=== PATIENT | female | born 1945 | race Caucasian/White ===

== ENCOUNTER 2018-01-20 11:40 | Emergency (ER) | payer MEDICARE, OTHER ==
[~2018-01-20 11:40] MED LIST: ISOVUE-370 76%-LOCM 1 ML ONE
[2018-01-20 13:12] LABS: #Basophils 0.1 thou/uL (0.0-0.2); #Eosinphils 0.1 thou/uL (0.0-0.7); #Lymphocytes 2.6 thou/uL (1.20-3.40); #Monocytes 0.6 thou/uL (0.11-0.59); #Neutrophils 6.7 thou/uL (1.40-6.50); %Basophils 1.1 % (0.0-1.0); %Lymphocytes 25.6 % (21.0-51.0); %Monocytes 5.6 % (0.0-10.0); %Neutrophils 66.6 % (42.0-75.0); Mean Corpuscular HGB CONC 33.2 g/dL (32.0-36.0); Mean Corpuscular Hemoglobin 31.2 pg (27.0-31.0); Mean Corpuscular Volume 93.9 fL (78.0-98.0); Mean Platelet Volume 7.1 fL (7.4-10.4); Platelet Count 276 thou/uL (130-400); RBC Distribution Width 12.1 % (11.5-14.5); Red Blood Cell (RBC) Count 4.49 mill/uL (4.20-5.40); White Blood Cell (WBC) Count 10.1 thou/uL (4.8-10.8)
--- NOTE | 2018-01-20 13:20 | RAD ---
CHEST 1 VIEW: Date: 01/20/18 HISTORY: Epigastric abdominal pain, radiating to right upper quadrant. COMPARISON: None. FINDINGS: Normal cardiac silhouette. Pulmonary vessels and hilum are normal. No masses or consolidation. No pne umothorax or osseous abnormalities. Surgical clips project over the right upper quadrant. IMPRESSION: No acute cardiopulmonary process. POS: [facility]
[2018-01-20 13:27] LABS: ALT (SGPT) 12 U/L (8-55); AST (SGOT) 14 U/L (5-34); Albumin 4.2 g/dL (3.4-4.8); Alkaline Phosphatase 154 U/L (40-150); Anion Gap 11 mmol/L (10-20); BUN (Urea Nitrogen) 22 mg/dL (9.8-20.1); Bilirubin, Total 0.3 mg/dL (0.2-1.2); Calc. Creatinine Clearance 0 mL/min (70-130); Calcium 9.9 mg/dL (7.8-10.44); Carbon Dioxide 28 mmol/L (23-31); Chloride 105 mmol/L (98-107); Estimated GFR-MDRD 60; Glucose 105 mg/dL (80-115); Lipase 14 U/L (8-78); Potassium 4.3 mmol/L (3.5-5.1); Protein, Total 7.2 g/dL (6.0-8.3); Sodium 140 mmol/L (136-145)
[2018-01-20 13:31] LABS: CKMB 1.5 ng/mL (0-6.6); Troponin I Less than 0.010 ng/mL (< 0.028)
--- NOTE | 2018-01-20 14:19 | CT ---
CT ANGIOGRAM CHEST WITH CONTRAST CT ANGIOGRAM ABDOMEN WITH CONTRAST WITH AORTIC DISSECTION PROTOCOL: HISTORY: Epigastric substernal pain. Right upper quadrant pain. COMPARISON: Chest radiograph 01/20/18. FINDINGS: CT angiogram of the chest and abdomen is performed after the intravenous administration of contrast. Three-D rendering is provided. There are some mildly prominent right paratracheal lymph nodes, although measuring less than a centim eter in size. Heart size is not significantly enlarged. No pericardial effusion. NO pneumothorax. No effusion. No focal airspace consolidation. There is radiopacity within the right S2 neural foramen. Moderate facet arthropathy lower lumbar spi ne. No evidence of acute osseous abnormality. Severe degenerative disk space disease of L4. No aortic dissection. The celiac artery and superior mesenteric artery are both patent. No aneurysmal dilatation of the aorta. Inferior mesenteric artery is patent. The iliac vessels are without aneurysmal dilatation. Moderate diverticular disease sigmoid colon without acute current inf lammation. The spleen, liver, gallbladder, and pancreas are unremarkable as well as the adrenal glands. IMPRESSION: No evidence for aortic dissection. POS: [facility]
[2018-01-20] MEDS ORDERED: Lidocaine Viscous Sol 2% 15 ml UD Cup ONE (15:05)
[2018-01-20] MEDS ORDERED: Mag-Al 1200 mg/1200 mg/30 ML UDCUP ONE (15:05)
== END 2018-01-20 15:38 | disposition home or self-care (01) ==
LOC: ERS 11:40
DX: K21.9 Gastro-esophageal reflux disease without esophagitis (principal); Z86.73 Personal history of transient ischemic attack (TIA), and cerebral infarction without residual deficits; I10 Essential (primary) hypertension
CPT/HCPCS: 71045; 71275; 80053; 82553; 83690; 83880; 84484; 85025; 93005; 94760

== ENCOUNTER 2018-05-30 08:51 | Outpatient (CLI) | payer MEDICARE, OTHER ==
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
== END 2018-05-30 08:52 | disposition home or self-care (01) ==
LOC: SCSMRI 08:51
PROVIDERS: ATTEND Psychiatry & Neurology Neurology
DX: S06.890A Other specified intracranial injury without loss of consciousness, initial encounter (principal); G31.9 Degenerative disease of nervous system, unspecified; G93.9 Disorder of brain, unspecified
CPT/HCPCS: 70553; 82565

== ENCOUNTER 2018-06-28 12:49 | Outpatient (CLI) | payer MEDICARE, OTHER ==
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
== END 2018-06-28 12:50 | disposition home or self-care (01) ==
LOC: TBSIIMAG 12:49
PROVIDERS: ATTEND Neurological Surgery
DX: M89.9 Disorder of bone, unspecified (principal); N32.89 Other specified disorders of bladder; R93.0 Abnormal findings on diagnostic imaging of skull and head, not elsewhere classified
CPT/HCPCS: 70450

== ENCOUNTER 2018-11-18 08:49 | Outpatient (CLI) | payer MEDICARE, OTHER ==
--- NOTE | 2018-11-18 09:23 | CT ---
CT BRAIN PERFORMED WITHOUT CONTRAST ENHANCEMENT: Date: 11/18/18 HISTORY: Follow-up of right calvarial lesion. FINDINGS: The ventricular and cisternal system is within normal limits. There are no signs of intracerebral hem orrhage or extra-axial fluid collections. No mass lesion or mass effect. The cortical lesion over the right frontoparietal region near the vertex is stable in appearance. IMPRESSION: 1. No acute intracranial abnormality. 2. Stable appearance to right calvarial lesion with a calvarial hemangioma favored as a diagnosis. POS: [facility]
== END 2018-11-18 08:50 | disposition home or self-care (01) ==
LOC: SCSCT 08:49
PROVIDERS: ATTEND Psychiatry & Neurology Neurology
DX: S06.890A Other specified intracranial injury without loss of consciousness, initial encounter (principal); D18.00 Hemangioma unspecified site
CPT/HCPCS: 70450

== ENCOUNTER 2019-04-24 18:43 | Emergency (ER) | payer MEDICARE, OTHER ==
[~2019-04-24 18:43] MED LIST changes: -ISOVUE-370 76%-LOCM 1 ML ONE; +Iopamidol-370 76% 500 ML 1 ML ONE
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
[2019-04-24] MEDS ORDERED: Famotidine/PF 20 mg/2ml Vial ONE (20:37)
[2019-04-24] MEDS ORDERED: diphenhydrAMINE 50 MG/ML VIAL ONE (20:37)
[2019-04-24] MEDS ORDERED: methylPREDNISolone Sod Succ/PF 125 MG/2 ML VIAL ONE (20:37)
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
[2019-04-24] MEDS ORDERED: Morphine 4 MG/ML VIAL ONE (21:08)
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
== END 2019-04-24 23:40 | disposition home or self-care (01) ==
LOC: ERS 18:43
DX: S82.832A Other fracture of upper and lower end of left fibula, initial encounter for closed fracture (principal); I10 Essential (primary) hypertension; M19.90 Unspecified osteoarthritis, unspecified site; Z86.73 Personal history of transient ischemic attack (TIA), and cerebral infarction without residual deficits; V89.2XXA Person injured in unspecified motor-vehicle accident, traffic, initial encounter
CPT/HCPCS: 70450; 71045; 71260; 72125; 72170; 74177; 96374; 96375; G0390; J1200; J2270; J2930; Q9967; S0028